=== PATIENT | female | born 1955 | race African-American/Black ===

== ENCOUNTER 2022-10-12 13:00 | Emergency (ER) | payer OTHER ==
[~2022-10-12] VITALS: Ht 162.6 cm; Wt 75.7 kg
[2022-10-12] MEDS ORDERED: CRESTOR10 MG PO (13:13)
[2022-10-12] MEDS ORDERED: METRONIDAZOLE500 MG PO (19:09)
[2022-10-12] MEDS ORDERED: PEPCID AC20 MG PO (19:09)
[2022-10-12] MEDS ORDERED: CIPRO500 MG PO (19:09)
== END 2022-10-12 21:36 | disposition home or self-care (01) ==
LOC: ER 13:00
DX: K57.92 Diverticulitis of intestine, part unspecified, without perforation or abscess without bleeding (principal); E78.00 Pure hypercholesterolemia, unspecified; Z87.448 Personal history of other diseases of urinary system; N39.0 Urinary tract infection, site not specified

== ENCOUNTER 2023-01-18 11:49 | Emergency (ER) | payer OTHER ==
[~2023-01-18] VITALS: Ht 167.6 cm; Wt 68.0 kg
[~2023-01-18 11:49] MED LIST: CIPRO500 MG PO; CRESTOR10 MG PO; METRONIDAZOLE500 MG PO; PEPCID AC20 MG PO
== END 2023-01-18 15:03 | disposition home or self-care (01) ==
LOC: ER 11:49
DX: M25.552 Pain in left hip (principal)
CPT/HCPCS: 73502; 96372; 99283; J1885

== ENCOUNTER 2023-01-23 06:43 | Day surgery (SDC) | payer OTHER | END 2023-01-23 10:30 | disposition home or self-care (01) | LOC: AMB-ENDOS 06:43 | PROVIDERS: ATTEND Colon & Rectal Surgery | DX: K63.5 Polyp of colon (principal); K57.30 Diverticulosis of large intestine without perforation or abscess without bleeding; K63.89 Other specified diseases of intestine; Z20.822 Contact with and (suspected) exposure to COVID-19 ==